=== PATIENT | male | born 1990 | race Caucasian/White ===

== ENCOUNTER 2020-09-11 23:55 | Emergency (ER) | payer OTHER, BC ==
[2020-09-12] MEDS ORDERED: SODIUM CHLORIDE 0.9% 1,000 ML IV STA (00:03)
[2020-09-12] MEDS ORDERED: HYDROmorphone 0.5 MG/0.5 ML SYRINGE IVP STA ×2 (00:03→01:25)
[2020-09-12 00:28] LABS: Basophils # (A) 0.1 k/uL (0-0.2); Basophils % (A) 1 %; Eosinophils # (A) 0.2 k/uL (0-0.7); Eosinophils % (A) 2 %; HCT 41.3 % (39.0-53.0); HGB 14.6 gm/dL (13.0-17.5); Lymphocytes # (A) 2.1 k/uL (1.0-4.8); Lymphocytes % (A) 20 %; MCHC 35.5 g/dL (31.0-37.0); MCV 87.4 fL (80.0-100.0); Mean Platelet Volume 6.8; Monocytes # (A) 0.5 k/uL (0-1.0); Monocytes % (A) 5 %; Neutrophils # (A) 7.7 k/uL (1.3-7.7); Neutrophils % (A) 72 %; Platelet Count 173 k/uL (150-450); RBC 4.72 m/uL (4.30-5.90); RDW 12.4 % (11.5-15.5); WBC 10.6 k/uL (3.8-10.6)
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
[2020-09-12 00:35] LABS: AST 37 U/L (17-59); African American GFR (CKD) >90 (>60 ml/min/1.73 sqM); Albumin 4.4 g/dL (3.5-5.0); Alkaline Phosphatase 60 U/L (38-126); Anion Gap 7 mmol/L; Blood Urea Nitrogen 20 mg/dL (9-20); Calcium 9.1 mg/dL (8.4-10.2); Carbon Dioxide 26 mmol/L (22-30); Chloride 105 mmol/L (98-107); Glucose 100 mg/dL (74-99); Non-African American GFR(CKD) >90 (>60 ml/min/1.73 sqM); Potassium 3.8 mmol/L (3.5-5.1); Sodium 138 mmol/L (137-145); Total Bilirubin 0.6 mg/dL (0.2-1.3); Total Protein 7.2 g/dL (6.3-8.2)
[2020-09-12 00:36] LABS: ALT 30 U/L (4-49); Alcohol <10 mg/dL
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
[2020-09-12 00:45] LABS: Partial Thromboplastin Time 24.6 sec (22.0-30.0); Prothrombin Time 10.8 sec (9.0-12.0)
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
[2020-09-12] MEDS ORDERED: LIDOCAINE 5% PATCH TOPICAL STA (01:13)
--- NOTE | 2020-09-12 01:21 | CT ---
EXAM: CT Thoracic Spine Without Intravenous Contrast CLINICAL HISTORY: None. TECHNIQUE: Axial computed tomography images of the thoracic spine without intravenous contrast. CTDI is 14.7 mGy and DLP is 1134 mGy-cm. This CT exam was performed using one or more of the following dose reduction techniques: automated exposure control, adjustment of the mA and/or kV according to patient size, and/or use of iterative reconstruction technique. COMPARISON: No relevant prior studies available. FINDINGS: Vertebrae: Unremarkable. No acute fracture. Discs/spinal canal/neural foramina: No acute findings. No spinal canal stenosis. Soft tissues: Unremarkable. IMPRESSION: Negative thoracic spine CT. EXAM: CT Lumbar Spine Without Intravenous Contrast CLINICAL HISTORY: None. TECHNIQUE: Axial computed tomography images of the lumbar spine without intravenous contrast. CTDI is 14.7 mGy and DLP is 1134 mGy-cm. This CT exam was performed using one or more of the following dose reduction techniques: automated exposure control, adjustment of the mA and/or kV according to patient size, and/or use of iterative reconstruction technique. COMPARISON: No relevant prior studies available. FINDINGS: Vertebrae: Unremarkable. No acute fracture. Discs/spinal canal/neural foramina: No acute findings. No spinal canal stenosis. Soft tissues: Unremarkable. IMPRESSION: Negative lumbar spine CT.
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
[2020-09-12] MEDS ORDERED: ACET/COD 300 MG/30 MG STARTER PACK 6 TAB BTL PO STA (01:52)
[2020-09-12 02:19] VITALS: BP 123/79; PULSE 87; RESP 17; TEMP 98.4
== END 2020-09-12 02:16 | disposition home or self-care (01) ==
LOC: EC 23:55
DX: Z04.1 Encounter for examination and observation following transport accident (principal); S20.219A Contusion of unspecified front wall of thorax, initial encounter; R07.81 Pleurodynia; Z87.891 Personal history of nicotine dependence; Z88.1 Allergy status to other antibiotic agents; V28.4XXA Motorcycle driver injured in noncollision transport accident in traffic accident, initial encounter; Y92.410 Unspecified street and highway as the place of occurrence of the external cause
CPT/HCPCS: 93005; 86900; 86901; 80053; 84484; 85025; 85610; 85730; 86850; 80320; 71101; 72170; 73020; 72129; 72125; 72132; 70450; 71260; 74177; 99285; 96374; 96376; 96361; J1170; Q9967

== ENCOUNTER → 2021-04-19 | Outpatient (CLI) | payer BC ==
--- NOTE | 2021-04-19 22:55 | MR ---
EXAMINATION TYPE: MR lumbar spine wo con DATE OF EXAM: 04/19/2021 COMPARISON: HISTORY: pain in lower back and it travels down both legs TECHNIQUE: Multiplanar, multisequence images of the lumbar spine were acquired. L1-L2: Normal disc appearance without desiccation. No herniation, protrusion or disc bulging. No ca nal stenosis is present. Foramina are patent bilaterally. L2-L3: Normal disc appearance without desiccation. No herniation, protrusion or disc bulging. No ca nal stenosis is present. Foramina are patent bilaterally. L3-L4: Normal disc appearance without desiccation. No herniation, protrusion or disc bulging. No ca nal stenosis is present. Foramina are patent bilaterally. L4-L5: Posterior central disc protrusion causes mild anterior mass effect on the thecal sac. L5-S1: Posterior disc protrusion causes mild anterior mass effect on the thecal sac. Lumbar segments are intact. No paraspinal masses are identified. Conus medullaris has a normal appe arance. Loss of disc height signal present L4-5 and L5-S1 consistent with disc desiccation and degene rative disc disease. There is no evident spinal stenosis or significant foraminal encroachment. Is mu ltilevel spondylosis L4-5 and L5-S1 with minimal endplate discogenic marrow signal change. IMPRESSION: Degenerative disc disease L4-5 and L5-S1 posterior central disc protrusions.
== END | disposition home or self-care (01) ==
LOC: RADMRIMAIN 18:37
PROVIDERS: ATTEND Family Medicine
DX: M51.26 Other intervertebral disc displacement, lumbar region (principal); M51.36 Other intervertebral disc degeneration, lumbar region
CPT/HCPCS: 72148